=== PATIENT | male | born 1965 | race Caucasian/White ===

== ENCOUNTER → 2021-02-12 | Outpatient (CLI) | payer BC ==
[2021-02-12 17:12] LABS: HEMOGLOBIN 15.5 gm/dl (14.0-17.5); RED BLOOD COUNT 5.17 M/UL (4.20-5.50); WHITE BLOOD COUNT 9.4 K/UL (4.5-11.0)
[2021-02-12 17:28] LABS: BUN/CREATININE RATIO 20 (0-10)
[2021-02-15 17:09] LABS: QUANTIFERON MITOGEN VALUE >10.00 IU/mL (.); QUANTIFERON NIL VALUE 0.03 IU/mL (.); QUANTIFERON TB1 AG VALUE 0.07 IU/mL (.); QUANTIFERON TB2 AG VALUE 0.03 IU/mL (.); QUANTIFERON-TB GOLD PLUS Negative (Negative)
== END ==
LOC: LAB 16:41
PROVIDERS: Physician Assistant
DX: K50.00 Crohn's disease of small intestine without complications (principal)
CPT/HCPCS: 80053; 85025; 86140

== ENCOUNTER → 2021-08-27 | Outpatient (CLI) | payer BC ==
[2021-08-27 18:00] LABS: HEMOGLOBIN 16.4 gm/dl (14.0-17.5); RED BLOOD COUNT 5.38 M/UL (4.20-5.50); WHITE BLOOD COUNT 9.2 K/UL (4.5-11.0)
[2021-08-27 18:19] LABS: BUN/CREATININE RATIO 19 (0-10)
[2021-08-31 02:14] LABS: TANDEM-R OSTASE 13.2 ug/L (7.5-26.1)
[2021-08-31 03:08] LABS: QUANTIFERON MITOGEN VALUE >10.00 IU/mL (.); QUANTIFERON NIL VALUE 0.07 IU/mL (.); QUANTIFERON TB1 AG VALUE 0.07 IU/mL (.); QUANTIFERON TB2 AG VALUE 0.09 IU/mL (.); QUANTIFERON-TB GOLD PLUS Negative (Negative)
== END ==
LOC: LAB 16:15
PROVIDERS: Physician Assistant; Physician Assistant Medical
DX: M81.0 Age-related osteoporosis without current pathological fracture (principal); E55.9 Vitamin D deficiency, unspecified; K50.00 Crohn's disease of small intestine without complications; Z79.899 Other long term (current) drug therapy
CPT/HCPCS: 36415; 80053; 82607; 82728; 83540; 83550; 84080; 84100; 85025

== ENCOUNTER 2022-01-09 08:13 | Emergency (ER) | payer BC ==
[2022-01-09 08:52] LABS: HEMOGLOBIN 17.9 gm/dl (14.0-17.5); RED BLOOD COUNT 5.84 M/UL (4.20-5.50); WHITE BLOOD COUNT 19.6 K/UL (4.5-11.0)
[2022-01-09 09:32] LABS: BUN/CREATININE RATIO 16 (0-10)
[2022-01-09] MEDS ORDERED: ZOFRAN 4 MG TAB4 MG PO (11:16)
[2022-01-09] MEDS ORDERED: TORADOL 10 MG T10 MG PO (11:16)
[2022-01-09] MEDS ORDERED: FLOMAX0.4 MG PO (11:16)
== END 2022-01-09 11:29 | disposition home or self-care (01) ==
LOC: ER1 08:13
PROVIDERS: Physician Assistant
DX: N13.2 Hydronephrosis with renal and ureteral calculous obstruction (principal); K86.2 Cyst of pancreas
CPT/HCPCS: 80053; 81001; 85025; 96374; 96375; 99284; J1885; J2270; J2405; J7030; Q9967

== ENCOUNTER 2022-01-22 09:29 | Observation (INO) | payer BC ==
[~2022-01-22] VITALS: Ht 180.3 cm; Wt 102.1 kg
[~2022-01-22 09:29] MED LIST: FLOMAX0.4 MG PO; TORADOL 10 MG T10 MG PO; ZOFRAN 4 MG TAB4 MG PO
[2022-01-22 10:07] LABS: HEMOGLOBIN 16.3 gm/dl (14.0-17.5); RED BLOOD COUNT 5.36 M/UL (4.20-5.50); WHITE BLOOD COUNT 10.8 K/UL (4.5-11.0)
[2022-01-22 10:33] LABS: BUN/CREATININE RATIO 20 (0-10)
[2022-01-22] MEDS ORDERED: BUPROPION HCL100 M1 PO (15:13)
[2022-01-22] MEDS ORDERED: STELARA90 MG/1 ML SQ (15:15)
[2022-01-22] MEDS ORDERED: ZINC50 M1 PO (16:10)
[2022-01-22] MEDS ORDERED: CALCIUM 600 +1 EAC2 PO (16:10)
[2022-01-22] MEDS ORDERED: IRON325 M1 PO (16:11)
[2022-01-22] MEDS ORDERED: TART CHERRY CA1 EACH PO (16:12)
[2022-01-22] MEDS ORDERED: B-121000 MCG PO (16:12)
[2022-01-22] MEDS ORDERED: TURMERIC-TAMAR250 MG PO (16:12)
[2022-01-22] MEDS ORDERED: KRILL OIL500 MG PO (16:13)
[2022-01-22] MEDS ORDERED: GLUCOSAMINE CH1 EAC6 PO (16:14)
== END 2022-01-22 17:32 | disposition home or self-care (01) ==
LOC: ER1 09:29 → CDU 11:30 → MED SURG 4 14:13
PROVIDERS: Emergency Medicine; ADMIT Internal Medicine
DX: R07.89 Other chest pain (principal); F41.1 Generalized anxiety disorder; F32.A Depression, unspecified; N20.0 Calculus of kidney; K86.2 Cyst of pancreas; K50.90 Crohn's disease, unspecified, without complications; Z20.822 Contact with and (suspected) exposure to COVID-19; Z88.8 Allergy status to other drugs, medicaments and biological substances; Z90.49 Acquired absence of other specified parts of digestive tract; Z98.890 Other specified postprocedural states
CPT/HCPCS: ECHO; 71045; 80053; 82550; 82553; 84484; 85025; 93005; 93306; 99285; G0378; U0002

== ENCOUNTER → 2022-05-20 | Outpatient (CLI) | payer BC ==
[~2022-05-20] MED LIST changes: +B-121000 MCG PO; +BUPROPION HCL100 M1 PO; +CALCIUM 600 +1 EAC2 PO; +GLUCOSAMINE CH1 EAC6 PO; +IRON325 M1 PO; +KRILL OIL500 MG PO; +STELARA90 MG/1 ML SQ; +TART CHERRY CA1 EACH PO; +TURMERIC-TAMAR250 MG PO; +ZINC50 M1 PO
[2022-05-21 07:12] LABS: VITAMIN D, 25-HYDROXY 35.8 ng/mL (30.0-100.0)
[2022-05-23 05:08] LABS: TANDEM-R OSTASE 14.3 ug/L (7.5-25.7)
== END ==
LOC: LAB 14:30
PROVIDERS: Physician Assistant Medical
DX: M81.0 Age-related osteoporosis without current pathological fracture (principal); E55.9 Vitamin D deficiency, unspecified
CPT/HCPCS: 36415; 84080